=== PATIENT | male | born 1950 | race Caucasian/White ===

== ENCOUNTER 2016-12-11 10:18 | Inpatient (IN) | payer MEDICARE, BC ==
[2016-12-11] MEDS ORDERED: SODIUM CHLORIDE 0.9% 1000 ML SOL IV SCH (11:00)
[2016-12-11 11:11] LABS: BASOPHILS % (AUTO) 1 % (0-3); EOSINOPHILS % (AUTO) 1 % (0-9); HEMATOCRIT 37 % (39-53); MEAN CORPUSCULAR HGB CONC 35.9 gm/dl (32.0-36.0); MEAN CORPUSCULAR VOLUME 88 fL (80-100); MONOCYTES % (AUTO) 17.3 % (0-12); NEUTROPHILS % (AUTO) 69.8 % (37-80)
[2016-12-11] MEDS: ONDANSETRON HCL 4 MG/2 ML SOL IV PRN ×3 (11:12→22:51)
[2016-12-11] MEDS: ENOXAPARIN 40 MG SOL SC SCH (11:12)
[2016-12-11] MEDS: HYDROMORPHONE HCL 2 MG/ML 1 ML SOL IV PRN ×2 (11:12→17:49)
[2016-12-11 11:39] LABS: CALCIUM 8.3 mg/dl (8.5-10.1); POTASSIUM 3.4 mMol/L (3.5-5.1)
[2016-12-11] MEDS: DEXTROSE/SALINE 0.45/KCL 20MEQ 1,000 ML/1,000 ML SOL IV SCH ×2 (12:55→19:29)
[2016-12-11] MEDS ORDERED: MORPHINE SULFATE 10 MG/ML SOL IV PRN (18:38)
[2016-12-11] MEDS ORDERED: PRAVASTATIN SODIUM 20 MG TAB PO SCH (21:00)
[2016-12-11] MEDS ORDERED: TAMSULOSIN HYDROCHLORIDE 0.4 MG CAP PO SCH (21:00)
[2016-12-11] MEDS ORDERED: TRAVOPROST 0.004% EACHEYE SCH (21:00)
[2016-12-11] MEDS: TIMOLOL MALEATE 0.5% EACHEYE SCH (22:50)
[2016-12-11] MEDS: KETOROLAC TROMETHAMINE 30 MG/ML SOL IV PRN (22:50)
[2016-12-11] MEDS: BRIMONIDINE EACHEYE SCH (22:51)
[2016-12-11] MEDS: BRINZOLAMIDE EACHEYE SCH (22:51)
[2016-12-12] MEDS: DEXTROSE/SALINE 0.45/KCL 20MEQ 1,000 ML/1,000 ML SOL IV SCH ×4 (02:15→22:57)
[2016-12-12] MEDS ORDERED: BISACODYL 5 MG TAB ECT PO PRN (08:23)
[2016-12-12] MEDS: KETOROLAC TROMETHAMINE 30 MG/ML SOL IV PRN (08:54)
[2016-12-12] MEDS: ENOXAPARIN 40 MG SOL SC SCH (08:54)
[2016-12-12] MEDS: BRIMONIDINE EACHEYE SCH ×2 (08:55→20:42)
[2016-12-12] MEDS: TIMOLOL MALEATE 0.5% EACHEYE SCH (08:55)
[2016-12-12] MEDS: BRINZOLAMIDE EACHEYE SCH ×2 (08:55→20:42)
[2016-12-12] MEDS: ACETAMINOPHEN 500 MG 500 MG TAB PO PRN ×2 (16:53→23:00)
[2016-12-12] MEDS: TRAVOPROST SOL EACHEYE SCH (20:42)
[2016-12-12] MEDS: TIMOLOL MALEATE 0.5% OPHTHAL SOL EACHEYE SCH (20:42)
[2016-12-13] MEDS: DEXTROSE/SALINE 0.45/KCL 20MEQ 1,000 ML/1,000 ML SOL IV SCH (05:18)
[2016-12-13] MEDS: ACETAMINOPHEN 500 MG 500 MG TAB PO PRN ×2 (05:18→12:50)
[2016-12-13] MEDS: BRINZOLAMIDE EACHEYE SCH ×2 (08:18→21:11)
[2016-12-13] MEDS: ENOXAPARIN 40 MG SOL SC SCH (08:18)
[2016-12-13] MEDS: TIMOLOL MALEATE 0.5% OPHTHAL SOL EACHEYE SCH ×2 (08:18→21:11)
[2016-12-13] MEDS: BRIMONIDINE EACHEYE SCH ×2 (08:18→21:11)
[2016-12-13 15:19] VITALS: RESP 18
[2016-12-13] MEDS: KETOROLAC TROMETHAMINE 30 MG/ML SOL IV PRN (19:12)
[2016-12-13] MEDS: SODIUM CHLORIDE 0.9% FLUSH 10 ML SOL IV PRN (19:13)
[2016-12-13] MEDS: TRAVOPROST SOL EACHEYE SCH (21:11)
[2016-12-14] MEDS: SODIUM CHLORIDE 0.9% FLUSH 10 ML SOL IV PRN ×3 (03:25→12:18)
[2016-12-14] MEDS: KETOROLAC TROMETHAMINE 30 MG/ML SOL IV PRN (06:24)
[2016-12-14 08:38] VITALS: BP 121/77; PULSE 78; TEMP 97.3; O2SAT 96
[2016-12-14] MEDS: ENOXAPARIN 40 MG SOL SC SCH (09:08)
[2016-12-14] MEDS: TIMOLOL MALEATE 0.5% OPHTHAL SOL EACHEYE SCH (09:09)
[2016-12-14] MEDS: BRIMONIDINE EACHEYE SCH (09:09)
[2016-12-14] MEDS: BRINZOLAMIDE EACHEYE SCH (09:09)
[2016-12-14] MEDS: ACETAMINOPHEN 500 MG 500 MG TAB PO PRN (12:16)
== END 2016-12-14 16:15 | disposition home or self-care (01) | DRG 390 ==
LOC: ACUTE CARE 10:19
PROVIDERS: ADMIT Family Medicine; ATTEND Family Medicine
PROC: F01ZDFZ Gait and/or Balance Assessment using Assistive, Adaptive, Supportive or Protective Equipment (ICD-10-PCS; principal; 2016-12-11)
PROC: F01ZBZZ Bed Mobility Assessment (ICD-10-PCS; 2016-12-11)
PROC: F01ZCZZ Transfer Assessment (ICD-10-PCS; 2016-12-11)
DX: K56.7 Ileus, unspecified (principal); Z96.651 Presence of right artificial knee joint
CPT/HCPCS: 36415; 71010; 80048; 85025; J1170; J1650; J1885; J2405

== ENCOUNTER 2017-08-22 14:21 | Outpatient (CLI) | payer MEDICARE, BC ==
[2016-12-14 08:38] VITALS: O2SAT 96
== END 2017-08-22 14:22 | disposition home or self-care (01) | DRG 554 ==
LOC: CONVCARE 14:21
PROVIDERS: ATTEND Orthopaedic Surgery
DX: M16.12 Unilateral primary osteoarthritis, left hip (principal)
CPT/HCPCS: 73502

== ENCOUNTER 2018-08-28 09:53 | Outpatient (CLI) | payer MEDICARE, BC ==
[2016-12-14 08:38] VITALS: O2SAT 96
== END 2018-08-28 09:54 | disposition home or self-care (01) | DRG 556 ==
LOC: CONVCARE 09:53
PROVIDERS: ATTEND Orthopaedic Surgery
DX: M25.552 Pain in left hip (principal)
CPT/HCPCS: 72120; 72190

== ENCOUNTER 2018-11-06 13:09 | Outpatient (CLI) | payer MEDICARE, BC | END 2018-11-06 13:10 | disposition home or self-care (01) | LOC: CONVCARE 13:09 ==